=== PATIENT | female | born 1980 | race Caucasian/White ===

== ENCOUNTER 2018-08-17 14:29 | Outpatient (CLI) | payer BC, SELFPAY ==
--- NOTE | 2018-08-17 13:41 | DI.RAD_ITS ---
SYMPTOMS/DIAGNOSIS: TWISTED ANKLE, S99.919A RIGHT ANKLE: Three views. No acute fracture or dislocation is seen. There is soft tissue swelling about the ankle particularly laterally. No radiopaque foreign bodies are seen in the soft tissues. IMPRESSION: Soft tissue swelling about the ankle. No acute fracture or dislocation.
== END 2018-08-17 14:49 ==
PROVIDERS: Visit Provider Nurse Practitioner Family
DX: M25.571 Pain in right ankle and joints of right foot (principal); S93.401A Sprain of unspecified ligament of right ankle, initial encounter; M79.89 Other specified soft tissue disorders
CPT/HCPCS: 73610

== ENCOUNTER 2018-08-24 12:37 | Outpatient (REF) | payer BC, SELFPAY ==
--- NOTE | 2018-08-24 11:20 | PAPFT_PTH ---
PATIENT: Jo Siegel LOC: [facility] U#:[id number] AGE/SX: 38/F ROOM: RE08/24/[address]: Evangelina Lam : 1980 BED: DIS: 08/24/2018 SPEC #: [id number] RECD: 08/24/18 18:00 STATUS: JAMIACamilo REPriscila #: [id number] OLIIVA: 08/24/18 11:[address]: Evangelina Lam DEPT: [facility] Cytology RECD BY: Fiordaliza Ceron ENTERED: 08/24/18 18:00 SP TYPE: PAPFT OTHR DR: Yuliana Christensen APRN Tissues: 1 - CX/ENDOCX FOR PAP SMEARS Procedures: PAP THIN PREP/UVM Screening HPV DNA PROBE Comments:
== END 2018-08-24 12:57 ==
LOC: LBN 12:37
PROVIDERS: Visit Provider Obstetrics & Gynecology Gynecology
DX: Z12.4 Encounter for screening for malignant neoplasm of cervix (principal); Z11.51 Encounter for screening for human papillomavirus (HPV)
CPT/HCPCS: 88142; 87624

== ENCOUNTER 2019-11-04 01:34 | Outpatient (CLI) | payer BC, SELFPAY ==
--- NOTE | 2019-11-04 10:51 | DI.MAMMO_ITS ---
EXAM: MAMMO SCREENING CLINICAL HISTORY: screening, Z12.39. baseline TECHNIQUE: Full field digital CC and MLO mammographic images were obtained with 3D tomosynthesis and utilizing computer aided detection (CAD). COMPARISON: This is a baseline examination. FINDINGS: Breast Density - Category B - Scattered areas of fibroglandular density Masses/Architectural Distortion: None seen. Microcalcifications: No suspicious pleomorphic-type calcifications are seen. Skin Thickening/Nipple Retraction: None. Axilla: Unremarkable. IMPRESSION: 1. BI-RADS category 1, negative. No significant interval change with no specific features of maligna ncy noted. 2. Unless there is more urgent need, screening mammography is recommended, as per [employer] guidelines. A negative radiographic report should not delay biopsy if a dominant or clinically suspicious mass is present. Up to ten percent of cancers are not identified on mammography. A negative report may reinforce clinical impression. Adenosis and dense breasts may obscure an underlying neoplasm. False positive reports average 6 to 10%. Patient will receive a letter notifying them of these results.
== END 2019-11-04 01:54 ==
PROVIDERS: PCP Nurse Practitioner; Visit Provider Nurse Practitioner
DX: Z12.31 Encounter for screening mammogram for malignant neoplasm of breast (principal)
CPT/HCPCS: 77063; 77067

== ENCOUNTER 2021-02-05 01:58 | Outpatient (CLI) | payer BC, SELFPAY ==
[2021-02-05 08:59] LABS: TSH (W/Ref FT4) 0.79 uIU/mL (0.36-3.74)
[2021-02-05 17:01] LABS: Estradiol 82 pg/mL (See Note)
[2021-02-05 18:32] LABS: FSH 7.8 mIU/mL (See Note)
== END 2021-02-05 01:59 | disposition home or self-care (01) ==
LOC: LBO 01:58
PROVIDERS: PCP Nurse Practitioner; Visit Provider Nurse Practitioner Women's Health
DX: R53.83 Other fatigue (principal); R23.2 Flushing
CPT/HCPCS: 36415; 82670; 83001; 84443

== ENCOUNTER 2021-02-10 17:44 | Outpatient (REF) | payer BC, SELFPAY ==
[2021-02-16 14:55] LABS: Helicobacter pylori Ag, Feces Negative (Negative)
== END 2021-02-10 17:45 | disposition home or self-care (01) ==
LOC: LBN 17:44
PROVIDERS: PCP Nurse Practitioner; Visit Provider Nurse Practitioner
DX: R10.13 Epigastric pain (principal)
CPT/HCPCS: 87338

== ENCOUNTER 2021-07-26 02:44 | Outpatient (CLI) | payer BC, SELFPAY ==
[2021-07-26 11:33] LABS: Source Nasal/Nares
[2021-07-26 16:28] LABS: COVID-19 PCR Negative (Negative)
== END 2021-07-26 02:45 | disposition home or self-care (01) ==
LOC: LBO 02:44
PROVIDERS: PCP Nurse Practitioner; Visit Provider Surgery
DX: Z20.822 Contact with and (suspected) exposure to COVID-19 (principal); Z01.818 Encounter for other preprocedural examination
CPT/HCPCS: 87635

== ENCOUNTER 2021-07-27 06:09 | Day surgery (SDC) | payer BC, SELFPAY ==
--- NOTE | 2021-07-26 22:22 | PDOC.DSDIS_ITS ---
Discharge Plan Disposition Patient Disposition: HOME Condition: Good Discharge Details Reason For Visit: stomach and colon scope Attending Provider: Sari Jimenez Primary Care Provider: Judie Uribe Home Meds and New Rx's Prescriptions: New dicyclomine 10 mg capsule 10 mg PO TID PRN (Reason: abdominal distention/cramping ) Qty: 60 RF: 6 Continued famotidine 20 mg tablet 20 mg PO BID Qty: 60 RF: 0 albuterol sulfate 90 mcg/actuation HFA aerosol inhaler 2 puff IH 6XD PRN (Reason: shortness of breath or wheezing) Qty: 18 RF: 0 fluoxetine 40 mg capsule 40 mg PO DAILY Qty: 90 RF: 3 Discontinued bisacodyl [Dulcolax (bisacodyl)] 5 mg tablet,delayed release (DR/EC) 5 mg PO ONCE Qty: 4 RF: 0 polyethylene glycol 3350 17 gram/dose powder 238 g PO ONCE Qty: 238 RF: 0 Discharge Instructions Additional Instructions: DSU Colonoscopy Post- Op Instructions Instructions for Everyone who is given Anesthesia: For your safety, please do the following for the next twenty-four (24) hours: *Do Not operate a motor vehicle (car, truck, motorcycle, etc.) *Do Not drink alcoholic beverages or use any recreational drugs for the first 24 hours or while taking pain medications. The medications in your body may have a reaction that can be dangerous. *Do Not make any important decisions or sign any important papers. Findings:bile reflux gastritis esophageal ulcer protonix/carafate bentyl Follow up: 1. No lifting over 20 pounds or strenuous activity for the first 24 hours after your procedure. After 24 hours there are no restrictions on your activity but you may feel fatigued for a few days. 2. After you arrive home you may have a light meal and return to your normal diet as you can tolerate it without feeling sick to your stomach. 3. You may have a bloated, gaseous feeling in your belly (abdomen) after a colonoscopy. Passing gas and belching will help. Walking or lying down on your left side with your knees flexed may relieve the discomfort. Call the office at [phone] (Office) or [phone] (Hospital) right away if you notice any of the following: a.Vomiting of blood or ?coffee ground stools?. b.Rectal bleeding 1Tbsp, blood clots or continuous bleeding. c.Severe belly (abdominal) pain. d.A hard distended belly (abdomen) and an inability to pass gas. 4. Please don?t expect to have a normal BM (bowel movement) for 2-3 days after your procedure. 5. If there are questions regarding the findings of your procedure, please co ntact your doctor 6. If you are unable to contact your doctor with a problem, contact the hospital at [phone]. 7. Continue all your regular medications unless directed otherwise. I understand the above instructions and have no questions. Signature of Patient or Adult Escort Name of Responsible Adult Escort Signature of Nurse Date/Time Activity:: see above Diet:: see above Discharge Orders Discharge Orders: Discharge Order (Routine); Ordered 07/26/21 Ordered By: Sari Jimenez DS: Diagnosis Discharge Diagnosis (1) IBS (irritable bowel syndrome): Status: Chronic (2) GERD with esophagitis: Status: Acute (3) Esophageal ulcer without bleeding: Status: Acute (4) Bile reflux gastritis: Status: Acute (5) Duodenitis: Status: Acute
--- NOTE | 2021-07-26 22:22 | W.COLOREPORT ---
Colonoscopy Report Date of procedure: 07/27/21 Pre-op diagnosis general: abdominal pain Post-op diagnosis procedure note: other (IBS) Surgeon: Sari Jimenez Anesthesia Type: General LMA/ETT Estimated blood loss (mL): 1 Pathology: other Complications: None Disposition: same day Prep: Miralax/Dulcolax Retraction Time: 7 Procedure Description: After informed consent was obtained the patient was taken to the procedure room and placed in a left decubitous position. Monitors were applied and a time out was done. The patients name, date of , procedure, allergies to medications and metal in their body was reviewed. The patient was then sedated. Once sedated and comfortable a rectal exam was done. External exam was normal. Internal exam revealed a normal sphincter tone and no palpable masses. The scope was then introduced and retrofelexed. no internal hemorrhoids were identified. The scope was then advanced to the cecum w/out difficulty. The TI and appendiceal orifice were identified. The prep was good. The scope was then slowly retracted over 7 minutes back into the rectum. There are no polyps, AVMs, or diverticular present. The mucosa and accompanying vasculature appear healthy. Biopsies were taken of the cecum, 80 cm, 50 cm, 30 cm and rectum. All specimens are retrieved and no bleeding is noted. The scope was removed and the patient was woken up and taken back to Same day surgery in stable condition. The patient tolerated the procedure well and there were no immediate complications. Follow up: The patient should follow up in 10 years unless they develop changes in bowel habits or other new gastrointestinal complaints.
[2021-07-27 06:15] VITALS: BP 105/71; PULSE 90; RESP 18; TEMP 36.4; O2SAT 100
[2021-07-27] MEDS: Lactated Ringers 1,000 ML 80 ML IV (06:40)
--- NOTE | 2021-07-27 07:02 | ANES.PREOP_ITS ---
General Info Date of Service Date Performed: 07/27/21 Height: 5 ft 4 in Weight: 81.7 kg Body Mass Index (BMI): 30.9 Surgical Procedure: Operation Date: 07/27/21 07:35 Proposed Procedures Side Surgeon p Colonoscopy/Gastroscopy Sari Jimenez, Meds Allergies and Home Medications Allergies Allergy/AdvReac Type Severity Reaction Status Date / Time bacitracin Allergy Intermediate Rash Unverified 07/27/21 06:25 [From Neosporin ([id number])] neomycin sulfate Allergy Intermediate Rash Unverified 07/27/21 06:25 [From Neosporin ([id number])] polymyxin B Allergy Intermediate Rash Unverified 07/27/21 06:25 [From Neosporin ([id number])] Home Medication Medication Instructions Recorded albuterol sulfate 90 mcg/actuation 2 puff IH 6XD PRN #18 gm 01/07/20 aerosol inhaler fluoxetine 40 mg capsule 40 mg PO DAILY #90 cap 01/27/21 bisacodyl 5 mg tablet,delayed 5 mg PO ONCE #4 tab 06/18/21 release famotidine 20 mg tablet 20 mg PO BID #60 tab 06/18/21 polyethylene glycol 3350 17 238 g PO ONCE #238 g 06/18/21 gram/dose oral powder Current Visit Medications: Current Medications Generic Name Dose Route Start Last Admin Trade Name Freq PRN Reason Stop Dose Admin Hyoscyamine Sulfate 0.125 mg 07/26/21 21:13 Hyoscyamine 0.125 Mg Sl/Oral/Chew SL DIRECTED PRN Ringer's Solution 1,000 mls @ 80 mls/hr 07/27/21 06:00 07/27/21 06:40 IV 08/25/21 23:59 80 mls/hr INFUSION TY Administration IV Miscellaneous Supplies 1 each 07/27/21 06:00 Iv Access IV 08/25/21 23:59 DIRECTED TY Ondansetron HCl 4 mg 07/26/21 21:13 Ondansetron 4 Mg/2 Ml Vial IVP Q4H PRN PRN Nausea / Vomiting Sodium Chloride 0 ml 07/27/21 06:00 Normal Saline Flush 10 Ml Syr IV 08/25/21 23:59 PRN PRN Sodium Chloride 0 ml 07/27/21 06:00 Normal Saline 10 Ml Vial IJ 08/25/21 23:59 DIRECTED PRN Sterile Water 0 ml 07/27/21 06:00 Water,Injection,Sterile 10 Ml Vial IJ 08/25/21 23:59 DIRECTED PRN PFSH Active Problems Active Problems: Problem Status Onset Code Epigastric pain R10.13 IBS (irritable bowel syndrome) K58.9 Depression F32.9 Asthma J45.909 Dyspareunia Anxiety 11/21/17 F41.9 Medical History Medical History Abnormal Pap smear of cervix 2016 MUSA-2. S/P LEEP. Normal Paps since Asthma MUSA II (cervical intraepithelial neoplasia II) (08/16/16) Dyspareunia Surgical History Surgical History History of loop electrosurgical excision procedure (LEEP) of cervix 2016 MUSA-2. Normal Paps since PROCEDURES Endometrial Biopsy, 03/22/12 [facility]- MUSA II HGSIL ON BIOPSY CERVICAL LES CAUTERIZAT, 06/05/12 [facility] (LEEP) HIGH GRADE SQUAMOUS INTRAEPITHELIAL LESION (CINN II) S/P cholecystectomy Status post LEEP (loop electrosurgical excision procedure) of cervix High grade squamous; intraepithelial lesion (MUSA II) Pap-Low grade squamous intraepithelial lesion (LGSIL) 12/2012-[facility] S/P LEEP; high grade squamous; intraepithelial lesion (MUSA II)-paps normal since LEEP Tobacco Smoking/Tobacco Use Status: Former Tobacco Use Alcohol Alcohol Intake: current Alcohol intake frequency: a few times a month Substance Use Substance use: Never Substance use type: does not use Prental History History 3 Para Hx # Term Pregnancies 3 Multiple births Hx # Pregnancies Ectopic pregnancies AB induced Hx Number of Living Children 3 AB spontaneous Vital Signs and Lab Results Vital Signs Most Recent Vital Signs in EMR: Most Recent Vital Signs Temp Pulse Resp BP Pulse Ox 36.4 C L 90 18 105/71 100 07/27/21 06:15 07/27/21 06:15 07/27/21 06:15 07/27/21 06:15 07/27/21 06:15 Point of Care Results Point of Care Results: POC- Test(urine) Negative 07/27/21 06:34 Lab Results Blood Type / Crossmatch: No Data to Display Complete Blood Count: No Data to Display Complete Metabolic Panel: No Data to Display Liver Function Panel: No Data to Display Coagulation Panel: No Data to Display Cardiac Panel: No Data to Display Arterial Blood Gas: No Data to Display Venous Blood Gas: No Data to Display Pancreas Panel: No Data to Display Thyroid Panel: No Data to Display Infectious Disease: Coronavirus (COVID-19)(PCR) Negative (Negative) 07/26/21 09:50 07/26/21 Coronavirus 2019 Source Nasal/Nares 07/26/21 09:50 07/26/21 Blood Cultures: No Data to Display Toxicology Panel: No Data to Display Panel: No Data to Display Anesthesia Assessment and Plan Anesthesia History Personal History: No History of Anesthesia Complications Family History: No Family History of Anesthesia Complications Exercise Tolerance Exercise Tolerance: Metabolic Equivalents>4 Pertinent Negatives Pertinent Negatives: No Symptoms of GERD Cardiac & Pulmonary Exam Cardiac Exam: Normal S1/S2 Heart Sounds Pulmonary Exam: Clear Bilateral Breath Sounds Airway Exam Known Difficult Airway: No Mallampati Class: 2 Mouth Opening: Normal (> 3cm) Thyromental Distance: Greater than 3 cm Neck Range of Motion: Full ROM Neck Circumference: Normal Teeth Condition: Normal Dentition ASA Classification ASA Score: ASA 2 Emergency Case?: No NPO Status NPO Status: NPO Clears >2 hours, Solids >8 hours Status Status: Negative HCG Anesthesia Plan Resuscitation Status: Full Code Anesthesia Technique: General Anesthesia Airway Planned: Natural Airway Monitors Used: Standard Monitors
[2021-07-27 07:20] VITALS: BMI 30.9
--- NOTE | 2021-07-27 08:03 | HPE_ITS ---
Date of service: 07/27/21 Time of Service: 08:03 Assessment and Plan Assessment and plan (1) Epigastric pain: Status: Acute (2) IBS (irritable bowel syndrome): Status: Chronic Assessment and plan: Informed consent is obtained for the procedural (explained in simple layman's terms that the pt and/or family could understand) explaining risks vs benefits and alternatives to the procedure and consequences if we do not do the procedure and need/rational for the procedure. Risks include but are not limited to: bleeding, infection, perforation of esophagus, stomach, colon, small intestines, bronchus or trachea, or PTX. This would necessitate emergency surgery to repair the damage w/ possible ostomy; and other associated complications w/ the required surgery. Also complications of anesthesia including aspiration, AZ/CVA/. All questions answered and stable for procedure today. EGD and colonoscopy. Both with biopsies. Qualifiers: Irritable bowel syndrome type: with both diarrhea and constipation Qualified Code(s): K58.2 - Mixed irritable bowel syndrome History of Present Illness Narrative: 1 y/o female with a history of depression, asthma and anxiety pr esents with complaints of persistent epigastric pain along with severe and constant heartburn symptoms. She reports she had hyperemesis gravadium during all three of her pregnancies and now her heart burn symptoms have persisted. She describes her symptoms as burning in her throat, midsternal pain that is stabbing in nature. She trialled omeprazole with minimal improvement in her symptoms. This was then discontinued to allow for H. Pylori stool testing, which was negative. She did not return to using any medications for her symptoms. She states she is currently using OTC Tums and Rolaids PRN. Also of note the patient reports chronic GI issues, that consist of cramping, bloating and fluctuation between diarrhea and constipation. These symptoms are relieved with defecation. She reports following the Low FODMAP diet without any improvement and she has also supplemented her diet with metamucil. She reports that she stopped taking the metamucil because this caused stomach aches. The patient was very emotional during todays discussions, expressing frustration with her circumstances of not being able to finds answers or ways to improve her symptoms. She denies any family history of colon cancer or inflammatory bowel disease. Denies chest pain, palpitations, dyspnea or dyspnea with exertion. Denies personal or family history of adverse reactions to anesthesia. Denies any hist ory of AZ, stroke, seizures, bleeding or clotting disorders. Denies having any implanted metal. Denies any history of chemotherapy or radiation. Lengthy discussion about the potential options of trying H2 eva such as famotidine to help reduce her constant symptoms of heart burn. The patient was agreeable to this, however wishes to proceed with having a endoscopy for further evaluation of her symptoms. Negative H. Pylori stool test is reassuring. Given that she also has chronic bowel habit changes, abdominal pain and bloating discussed the option of also performing a Colonoscopy at the same time, given the chronicity of her symptoms. -Discussed Upper endoscopy procedure and the need to be NPO after midnight the night prior. Discussed possible complications of the procedure to include bleeding, pain, perforation, missed small lesion/polyp/ulcers, sore throat, aspiration and adverse reaction to the medications or sedation. Questions were answered to patient?s satisfaction. No guarantees were implied or given. She has no family history of colon cancer. She has had chronic GI issues including diarrhea, constipation, abdominal bloating and cramping. -Discussed colonoscopy bowel prep as well as the procedure. Discussed possible complications of the procedure to include bleeding, pain, perforation, missed small lesion/polyp, sore throat, aspiration and adverse reaction to the m edications. Questions were answered to patient?s satisfaction. No guarantees were implied or given. Informed consent is obtained for the procedural (explained in simple layman's terms that the pt and/or family could understand) explaining risks vs benefits and alternatives to the procedure and consequences if we do not do the procedure and need/rational for the procedure. Risks include but are not limited to: bleeding, infection, perforation of esophagus, stomach, colon, small intestines, bronchus or trachea, or PTX. This would necessitate emergency surgery to repair the damage w/ possible ostomy; and other associated complications w/ the required surgery. Also complications of anesthesia including aspiration, AZ/CVA/. Patient completed a bowel prep. Fluids coming is just clear yellow. She has no abdominal pain or cramping. No nausea and vomiting. She is having no chest pain or shortness of breath . She has no productive cough or fevers. She has no changes in her medical status. She has no changes in her medications. She is not been in the emergency department. All questions were answered to her satisfaction and she is stable for proposed procedure today. Review of Systems All systems reviewed & are unremarkable except as noted in HPI and below PFSH Medical History Abnormal Pap smear of cervix 2016 MUSA-2. S/P LEEP. Normal Paps since Asthma MUSA II (cervical intraepithelial neoplasia II) (08/16/16) Dyspareunia Surgical History History of loop electrosurgical excision procedure (LEEP) of cervix 2016 MUSA-2. Normal Paps since PROCEDURES Endometrial Biopsy, 03/22/12 [facility]- MUSA II HGSIL ON BIOPSY CERVICAL LES CAUTERIZAT, 06/05/12 [facility] (LEEP) HIGH GRADE SQUAMOUS INTRAEPITHELIAL LESION (CINN II) S/P cholecystectomy Status post LEEP (loop electrosurgical excision procedure) of cervix High grade squamous; intraepithelial lesion (MUSA II) Pap-Low grade squamous intraepithelial lesion (LGSIL) 12/2012-[facility] S/P LEEP; high grade squamous; intraepithelial lesion (MUSA II)-paps normal since LEEP Family History Mother No problems noted. Father No problems noted. Sister No problems noted. Grandfather Neoplasm BLADDER Grandfather No problems noted. Grandmother No problems noted. Grandmother No problems noted. Son No problems noted. Son No problems noted. Daughter No problems noted. 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 Pets and animals: Yes Pets and animals: dog(s) What type of physical activity do you participate in: none Special moreno needs: No Seatbelt use: always Do you feel safe at home: Yes Do you feel safe in your relationship?: Yes History History 3 Para Hx # Term Pregnancies 3 Multiple births Hx # Pregnancies Ectopic pregnancies AB induced Hx Number of Living Children 3 AB spontaneous Meds Allergies and Home Medications Allergies Allergy/AdvReac Type Severity Reaction Status Date / Time bacitracin Allergy Intermediate Rash Unverified 07/27/21 06:25 [From Neosporin ([id number])] neomycin sulfate Allergy Intermediate Rash Unverified 07/27/21 06:25 [From Neosporin ([id number])] polymyxin B Allergy Intermediate Rash Unverified 07/27/21 06:25 [From Neosporin ([id number])] Home Medications Medication Instructions Recorded Confirmed Type albuterol sulfate 90 mcg/actuation 2 puff IH 6XD PRN #18 gm 01/07/20 07/23/21 Rx aerosol inhaler fluoxetine 40 mg capsule 40 mg PO DAILY #90 cap 01/27/21 07/27/21 Rx bisacodyl 5 mg tablet,delayed 5 mg PO ONCE #4 tab 06/18/21 07/27/21 Rx release famotidine 20 mg tablet 20 mg PO BID #60 tab 06/18/21 07/27/21 Rx polyethylene glycol 3350 17 238 g PO ONCE #238 g 06/18/21 07/27/21 Rx gram/dose oral powder Exam Const General: cooperative, healthy appearing, comfortable, no acute distress, well developed and well groomed Nutritional Appearance: average body habitus and well nourished Orientation: alert, awake and oriented x3 HENMT Head: normal to inspection, normocephalic and atraumatic Ears: hearing grossly normal bilaterally and external ears normal General nose exam: external nose normal Face and sinus: normal facial exam and sinuses nontender Mouth: oral mucosae normal, lip normal, tongue normal and moist mucous membranes Teeth and gingiva: dentition normal Eyes General: appearance normal, both eyes and all related structures Conjunctivae: conjunctivae normal Sclera: sclerae normal Pupils: PERRL Neck Neck: normal visual inspection and full ROM Chest Chest: normal inspection of the chest Resp Effort & Inspection: normal respiratory effort, able to speak in complete sentences, no cough, no nasal flaring, not tachypneic and no use of accessory muscles Auscultation: clear to auscultation bilaterally, no rales, no rhonchi and no wheezes Cardio Jugular venous pressure: no JVD Rate: regular rate Rhythm: regular rhythm GI Inspection: normal to inspection, no edema and non-distended Palpation: soft, no masses, nontender and No ascites Auscultation: normal bowel sounds Skin General skin exam: no rashes or lesions noted Trauma: no lacerations or abrasions Neuro General: patient alert, patient oriented x3, oriented, gait normal, moves all extremities, no focal motor deficits and CN's II-XI intact bilaterally Cognition: normal cognition Speech: speech normal Gait: normal gait Motor: muscle tone normal throughout Extrem General: normal to inspection, full ROM and no clubbing, cyanosis or edema Psych Appearance: grossly normal and well kempt Mental Status: mental status grossly normal Speech and Movement: speech and movement normal Affect: normal affect Results Last Vital Signs Temp 36.4 C L 07/27/21 06:15 Pulse 90 07/27/21 06:15 Resp 18 07/27/21 06:15 BP 105/71 07/27/21 06:15 Pulse Ox 100 07/27/21 06:15
--- NOTE | 2021-07-27 08:26 | BOWEL_PTH ---
PATIENT: Jo Siegel LOC: [facility] U#:[id number] AGE/SX: 41/F ROOM: RE07/27/[address]: Sari Jimenez : 1980 BED: DIS: 07/27/2021 SPEC #: [id number] RECD: 07/27/21 12:55 STATUS: [facility] RE #: [id number] OLIVIA: 07/27/21 08:[address]: Sari Jimenez DEPT: Surgical Specimen RECD BY: Fiordaliza Ceron ENTERED: 07/27/21 12:59 SP TYPE: Bowel OTHR DR: Judie Uribe, PhD LARRY [employer] OPERATOR Tissues: 1 - BIOPSY BOWEL 2 - BIOPSY BOWEL 3 - STOMACH BIOPSY 4 - STOMACH BIOPSY 5 - ESOPHAGUS BIOPSY 6 - ESOPHAGUS BIOPSY 7 - BIOPSY BOWEL 8 - BIOPSY BOWEL 9 - BIOPSY BOWEL 10 - BIOPSY BOWEL 11 - BIOPSY BOWEL Procedures: GROSS AND MICRO LEVEL 4 Comments: [id number]
[2021-07-27 08:55] VITALS: BP 94/61; PULSE 74; RESP 16; TEMP 36.8; O2SAT 96
[2021-07-27 09:25] VITALS: BP 96/61; PULSE 59; RESP 16; TEMP 36.8; O2SAT 98
--- NOTE | 2021-07-27 09:46 | W.ANESPOSTOP ---
Postoperative Evaluation Date, Time and Location Date Performed: 07/27/21 Time Performed: 09:15 Patient Location: Day Surgery Unit Vital Signs Most Recent Imported Vital Signs: Most Recent Vital Signs Temp Pulse Resp BP Pulse Ox 36.8 C 59 L 16 96/61 L 98 07/27/21 09:25 07/27/21 09:25 07/27/21 09:25 07/27/21 09:25 07/27/21 09:25 Pain Score Most Recent Pain Score: Most Recent Pain Score Pain Level 0 07/27/21 09:25 Assessment Mental Status: Awake (Alert & Oriented to Patient Baseline) Airway and Respiratory Function: Patent airway with normal (patient baseline) respiratory exam Cardiovascular Function: Hemodynamically Stable Hydration Status: Adequately Hydrated Nausea & Vomiting: No Nausea or Vomiting Pain: Pt. Denies Any Pain Peripheral Nerve Block: Patient did not receive a nerve block
--- NOTE | 2021-07-27 13:15 | W.PM.ENDDOP ---
Date of service: 07/27/21 Time of Service: 13:15 Endoscopy Report DATE OF PROCEDURE: 07/27/21 PRE-OP DIAGNOSIS: gerd POST-OP DIAGNOSIS: other (Duodenitis /bile reflux gastritis/esophagitis with esophageal ulcer) SURGEON: Sari Jimenez ANESTHESIA TYPE: General LMA/ETT ESTIMATED BLOOD LOSS: 1 PATHOLOGY: other COMPLICATIONS: None DISPOSITION: same day PROCEDURE DESCRIPTION: After informed consent was obtained the patient was take to the procedure room and placed in a supine position. Monitors were applied and a time out was done. The patients name, date of , procedure type, allergies to medications and metal in their body was reviewed. A bite block was placed and the patient was sedated. Once sedated and comfortable the gastroscope was advanced through the oropharynx which was grossly normal into the esophagus. The proximal and mid-esophagus were normal. In the distal esophagus there was moderate esophagitis and a small esophageal ulcer. It had a white eschar and appears to be old and healing nicely. There is no active or old bleeding. The scope was advanced into the stomach and through the pylorus into the 3rd portion of the duodenum. The duodenum was noted to be mild duodenitis. Biopsies were done, all specimens are retrieved and no bleeding is noted the scope was retracted back into the stomach and biopsies were done to rule out H. pylori. There is active bile reflux noted. She has mild gastritis rating up from the antrum in a striped fashion. The scope was retroflexed. The cardia and fundus were noted to be normal. There no a hiatal hernia noted. The scope was retracted back into the esophagus and biopsies were done of the GE junction to rule out Ochoa's. The Z line was irregular. The scope was removed and we continued on 2 the colonoscopic portion of the procedure
== END 2021-07-27 10:21 | disposition home or self-care (01) ==
PROVIDERS: PCP Nurse Practitioner; Visit Provider Surgery
PROC: (CPT 45380; principal; 2021-07-27 07:30)
DX: K29.80 Duodenitis without bleeding (principal); K29.70 Gastritis, unspecified, without bleeding; K22.10 Ulcer of esophagus without bleeding; K58.2 Mixed irritable bowel syndrome; R10.13 Epigastric pain; K21.00 Gastro-esophageal reflux disease with esophagitis, without bleeding
CPT/HCPCS: 45380; 43239; 81025; 88305; J2405

== ENCOUNTER 2022-05-08 08:51 | Emergency (ER) | payer BC, SELFPAY ==
[2022-05-08 08:54] VITALS: BP 119/65; PULSE 90; RESP 18; TEMP 37.2; O2SAT 99
--- NOTE | 2022-05-08 09:11 | ED.GENADUL_ITS ---
Discharge Plan Disposition Patient Disposition: HOME Condition: Stable Discharge Details Clinical Impression: Cough, Pharyngitis Primary Care Provider: Judie Uribe ED Provider: Renaldo Dial Home Meds and New Rx's Prescriptions: New prednisone 20 mg tablet 60 mg PO DAILY 5 Days Qty: 15 0RF Continued cetirizine [Zyrtec] 10 mg tablet 10 mg PO DAILY PRN albuterol sulfate 90 mcg/actuation HFA aerosol inhaler 2 puff IH 6XD PRN (Reason: shortness of breath or wheezing) Qty: 18 0RF dicyclomine 10 mg capsule 10 mg PO TID PRN (Reason: abdominal distention/cramping ) Qty: 60 6RF pantoprazole [Protonix] 40 mg tablet,delayed release (DR/EC) 40 mg PO DAILY Qty: 90 4RF sucralfate [Carafate] 1 gram tablet 1 g PO HS Qty: 60 12RF Rx Instructions: may take up to 4 a day as needed for heartburn symptoms Discharge Instructions Instructions: Pharyngitis (ED), Acute Cough (ED) Additional Instructions: Rapid strep is negative. Chest x-ray is clear. Both your strep culture and COVID are pending. Prednisone as directed. Arrp-klx-qmrktmj medications for symptomatic control such as Tylenol, Motrin, antihistamine, decongestant, Chloraseptic spray, etc. Please watch for new or worsening symptoms and return to the ER for any concerns. Lastly, please contact your primary care provider in the next 3-5 days if symptoms not improving for outpatient reevaluation. Medical Decision Making 41-year-old female with a history of asthma, non-smoker, fully vaccinated against COVID, presents for URI-like symptoms for the past 3 days. Reports that mother and child have similar symptoms. Clinically she appears well, nontoxic, afebrile, pulse in the 90s, O2 sat 99% on room air, lungs clear to auscultation. Will obtain a send out COVID swab as well as a rapid strep and a chest x-ray. Clinically this appears to be more of a viral bronchitis and I do believe that initiating a burst dose of steroids would be reasonable given her requiring to use her inhaler and tell me that she feels wheezy at times Rapid strep negative. Chest x-ray unremarkable. Strep culture and COVID both pending. Standard discharge and return precautions were provided. Patient understands, is agreeable to this plan, and has no additional questions or concerns upon discharge. This documentation was generated using Dinetouchation system, please disregard any oddities of phrase or misspellings. Medical Records Medical records reviewed: Yes I reviewed the patient's medical records. Imaging Data Radiologic Study: Attestation: I personally reviewed and interpreted this imaging study as follows: Imaging: X-Ray Radiologist's impression: PROCEDURE INFORMATION: Exam: XR Chest Exam date and time: 05/08/2022 9:29 AM Age: 41 years old Clinical indication: Cough TECHNIQUE: Imaging protocol: Radiologic exam of the chest. Views: 1 view. COMPARISON: No relevant prior studies available. FINDINGS: Lungs: Unremarkable. No consolidation. Pleural spaces: Unremarkable. No pleural effusion. No pneumothorax. Heart/Mediastinum: Unremarkable. No cardiomegaly. Bones/joints: Unremarkable. IMPRESSION: No acute findings. Lab Data Lab results reviewed: Yes I reviewed the patient's lab results. Labs: 05/08/22 09:10 Tonsil - Not Specified Group A Streptococcus Culture - Pending HPI General Mode of arrival: ambulatory . Date/Time Provider Initiated Documentation: 05/08/22 09:02 . Limitations to Documentation: no limitations . Information obtained by: patient . HPI Narrative: This is a 41-year-old female, past medical history of asthma, presenting to the ER for evaluation of 6-day history of runny nose, sore throat, cough. Patient states that she is vaccinated for COVID. States that both her mother and child had similar symptoms. She denies headache, fever, ear pain, abdominal pain, nausea, vomiting, skin rash. She has taken ofja-snh-ommavyg medication with some relief. Related Data Home Medications Medication Instructions Recorded Confirmed albuterol sulfate 90 mcg/actuation 2 puff inhalation 6XD PRN 01/07/20 05/08/22 aerosol inhaler shortness of breath or wheezing #18 grams dicyclomine 10 mg capsule 10 mg PO TID PRN abdominal 07/27/21 05/08/22 distention/cramping #60 caps pantoprazole 40 mg tablet,delayed 40 mg PO DAILY #90 tabs 07/27/21 05/08/22 release (Protonix) sucralfate 1 gram tablet (Carafate) 1 g PO HS #60 tabs 07/27/21 05/08/22 cetirizine 10 mg tablet (Zyrtec) 10 mg PO DAILY PRN 04/26/22 05/08/22 prednisone 20 mg tablet 60 mg PO DAILY 5 days #15 tabs 05/08/22 Previous Rx's Medication Instructions Recorded albuterol sulfate 90 mcg/actuation 2 puff inhalation 6XD PRN 01/07/20 aerosol inhaler shortness of breath or wheezing #18 grams dicyclomine 10 mg capsule 10 mg PO TID PRN abdominal 07/27/21 distention/cramping #60 caps pantoprazole 40 mg tablet,delayed 40 mg PO DAILY #90 tabs 07/27/21 release (Protonix) sucralfate 1 gram tablet (Carafate) 1 g PO HS #60 tabs 07/27/21 prednisone 20 mg tablet 60 mg PO DAILY 5 days #15 tabs 05/08/22 Allergies Allergy/AdvReac Type Severity Reaction Status Date / Time bacitracin Allergy Intermediate Rash Unverified 05/08/22 09:12 [From Neosporin ([id number])] neomycin sulfate Allergy Intermediate Rash Unverified 05/08/22 09:12 [From Neosporin ([id number])] polymyxin B Allergy Intermediate Rash Unverified 05/08/22 09:12 [From Neosporin ([id number])] General Stated Complaint: GenMedical MULUGETA: 3 Review of Systems Constitutional Constitutional: Denies fever(s) ENT Ears, Nose, Mouth, and Throat: Reports nasal discharge and Reports sore throat Cardiovascular Cardiovascular: Denies chest pain and Denies dyspnea Respiratory Respiratory: Reports cough and Denies dyspnea Gastrointestinal Gastrointestinal: Denies abdominal pain, Denies nausea and Denies vomiting Integumentary/Breasts Skin/Breast: Denies rash PFSH All Active Problems (Updated 05/08/22 @ 10:01 by LB Gaxiola) Cough (Acute) Pharyngitis (Acute) Duodenitis (Acute) Bile reflux gastritis (Acute) Esophageal ulcer without bleeding (Acute) GERD with esophagitis (Acute) Epigastric pain (Acute) IBS (irritable bowel syndrome) (Chronic) Depression (Chronic) Asthma (Chronic) Dyspareunia (Chronic) Anxiety (Acute 11/21/17) Medical History Abnormal Pap smear of cervix 2016 MUSA-2. S/P LEEP. Normal Paps since MUSA II (cervical intraepithelial neoplasia II) (08/16/16) Surgical History History of colonoscopy (~07/27/21) History of esophagogastroduodenoscopy (EGD) (~07/27/21) History of loop electrosurgical excision procedure (LEEP) of cervix 2016 MUSA-2. Normal Paps since PROCEDURES Endometrial Biopsy, 03/22/12 [facility]- MUSA II HGSIL ON BIOPSY CERVICAL LES CAUTERIZAT, 06/05/12 [facility] (LEEP) HIGH GRADE SQUAMOUS INTRAEPITHELIAL LESION (CINN II) S/P cholecystectomy Status post LEEP (loop electrosurgical excision procedure) of cervix High grade squamous; intraepithelial lesion (MUSA II) Pap-Low grade squamous intraepithelial lesion (LGSIL) 12/2012-[facility] S/P LEEP; high grade squamous; intraepithelial lesion (MUSA II)-paps normal since LEEP Family History Mother No problems noted. Father No problems noted. Sister No problems noted. Grandfather Neoplasm BLADDER Grandfather No problems noted. Grandmother No problems noted. Grandmother No problems noted. Son No problems noted. Son No problems noted. Daughter No problems noted. 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 Pets and animals: Yes Pets and animals: dog(s) What type of physical activity do you participate in: none Special moreno needs: No Seatbelt use: always Do you feel safe at home: Yes Do you feel safe in your relationship?: Yes Female Reproductive History Menstrual control method: other (partner with vasectomy) History History 3 Para Hx # Term Pregnancies 3 Multiple births Hx # Pregnancies Ectopic pregnancies AB induced Hx Number of Living Children 3 AB spontaneous Exam Const General: cooperative, healthy appearing, comfortable and no acute distress Orientation: alert and awake HENMT Head: normal to inspection, normocephalic and atraumatic Ears: external ears normal, TM's normal bilaterally and EAC's normal General nose exam: nasal discharge clear Face and sinus: normal facial exam Mouth: oral mucosae normal and moist mucous membranes Throat: posterior oropharynx normal Eyes General: appearance normal, both eyes and all related structures Conjunctivae: conjunctivae normal Neck Neck: normal visual inspection, full ROM, no lymphadenopathy, no meningeal signs, trachea midline, supple and nontender Resp Effort & Inspection: normal respiratory effort, able to speak in complete sentences and cough (mild,dry) Auscultation: clear to auscultation bilaterally Cardio Rate: regular rate Rhythm: regular rhythm Skin General skin exam: no rashes or lesions noted Neuro General: patient alert, patient awake, moves all extremities and no focal motor deficits Sensory Exam: no sensory deficits noted Psych Appearance: grossly normal Mental Status: mental status grossly normal Course Vital Signs Vital signs: Vital Signs Temperature 37.2 C 05/08/22 08:54 Pulse 90 05/08/22 08:54 Respiratory Rate 18 05/08/22 08:54 Blood Pressure 119/65 05/08/22 08:54 Pulse Oximetry 99 05/08/22 08:54 Temperature 37.2 C 05/08/22 08:54 Temperature Source Temporal Artery Scan 05/08/22 08:54 Pulse 90 05/08/22 08:54 Respiratory Rate 18 05/08/22 08:54 Blood Pressure 119/65 05/08/22 08:54 Blood Pressure Position Sitting 05/08/22 08:54 Pulse Oximetry 99 05/08/22 08:54 Oxygen Delivery Method Room Air 05/08/22 08:54 Oxygen Flow Rate 0 05/08/22 08:54
[2022-05-08 09:12] VITALS: RESP 18
--- NOTE | 2022-05-08 09:52 | DI.RAD_ITS ---
Exam(s) XR PORTABLE CHEST AP EXAM: XR PORTABLE CHEST AP CLINICAL HISTORY: cough. TECHNIQUE: 2D digital imaging was performed. COMPARISON: No exams were available for comparison FINDINGS: LUNGS: Clear. No pleural abnormality seen. HEART: Normal. MEDIASTINUM: Normal. OTHER FINDINGS: None. IMPRESSION: No acute pulmonary findings. DATA REPOSITORY: RADIATION DOSE DELIVERED: Total DLP
--- NOTE | 2022-05-08 09:59 | DI.VRAD_ITS ---
PROCEDURE INFORMATION: Exam: XR Chest Exam date and time: 05/08/2022 9:29 AM Age: 41 years old Clinical indication: Cough TECHNIQUE: Imaging protocol: Radiologic exam of the chest. Views: 1 view. COMPARISON: No relevant prior studies available. FINDINGS: Lungs: Unremarkable. No consolidation. Pleural spaces: Unremarkable. No pleural effusion. No pneumothorax. Heart/Mediastinum: Unremarkable. No cardiomegaly. Bones/joints: Unremarkable. IMPRESSION: No acute findings. Dictated and Authenticated by: Bridger Chamorro MD. Ordering:HELENA Macario MD
[2022-05-08] MEDS: predniSONE 20 MG TAB 60 MG PO (10:12)
[2022-05-08 10:30] VITALS: BP 108/65; PULSE 88; RESP 18; TEMP 36.8; O2SAT 96
[2022-05-10 11:38] LABS: COVID-19 RT-PCR UVMMC Result Negative (Negative)
== END 2022-05-08 10:23 | disposition home or self-care (01) ==
PROVIDERS: Emergency Provider Physician Assistant; PCP Nurse Practitioner
DX: J02.9 Acute pharyngitis, unspecified (principal); R05.1 Acute cough; Z20.822 Contact with and (suspected) exposure to COVID-19
CPT/HCPCS: 87880; 99283; U0003; 71045; 87081; J7512

== ENCOUNTER → 2022-08-04 03:10 | Outpatient (CLI) | payer BC, SELFPAY ==
--- NOTE | 2022-08-04 08:00 | DI.MAMMO_ITS ---
Exam(s) MAMMO SCREENING EXAM: MAMMO SCREENING CLINICAL HISTORY: screening,Z12.39 TECHNIQUE: Bilateral full field digital CC and MLO mammographic images were obtained with 3D tomosyn thesis and utilizing computer aided detection (CAD). COMPARISON: Available for comparison. FINDINGS: Masses/Architectural Distortion: There are 2 new nodules seen in the upper outer quadrant of the left breast. There is also new nodular density in the inferior right breast. Microcalcifications: No suspicious pleomorphic-type are seen. Skin Thickening/Nipple Retraction: None. IMPRESSION: 1. Bilateral breast nodules which should be further evaluated. 2. Additional views and ultrasound of both breasts should be obtained for further evaluation. BI-RADS Category 0 - Assessment Incomplete: Need additional imaging evaluation Breast Density - Category C - Heterogeneously dense Breast density category C or D implies that the patient has dense breast tissue. Dense breast tissue is very common and is not abnormal but dense breast tissue can make it harder to find cancer on a ma mmogram. Also, dense breast tissue may increase their breast cancer risk. This information about the result of the mammogram report was provided to the patient to raise their awareness. Use this report when you speak with the patient about their risks for breast cancer, which includes their family hist ory. At that time, you may recommend for more screening tests (Ultrasound or MRI) as they might be us eful based on their risk. A negative radiographic report should not delay biopsy if a dominant or clinically suspicious mass is present. Up to ten percent of cancers are not identified on mammography. A negative report may reinforce clinical impression. Adenosis and dense breasts may obscure an underlying neoplasm. False positive reports average 6 to 10%. Patient will receive a letter notifying them of these results.
== END ==
PROVIDERS: PCP Nurse Practitioner; Visit Provider Nurse Practitioner Women's Health
DX: Z12.31 Encounter for screening mammogram for malignant neoplasm of breast (principal); R92.8 Other abnormal and inconclusive findings on diagnostic imaging of breast
CPT/HCPCS: 77063; 77067

== ENCOUNTER → 2022-08-11 02:14 | Outpatient (CLI) | payer BC, SELFPAY ==
--- NOTE | 2022-08-11 08:45 | DI.MAMMO_ITS ---
Exam(s) US BREAST LT COMPLETE US BREAST RT COMPLETE MG MAMMO SCREEN CALL BACK BI EXAM: US BREAST RT LIMITED CLINICAL HISTORY: NEW NODULAR DENSITY INFERIOR RT BREAST TECHNIQUE: Ultrasound performed using standard protocol. COMPARISON: US US BREAST LT LIMITED from 08/11/2022 FINDINGS: Additional mammographic views of both breasts and bilateral breast ultrasound are interpreted in conj unction. Right breast contains areas of asymmetric density with a nodular appearance as noted on recent mammog bebe. Spot compression views confirm nodularity in the 12 o'clock to 10 o'clock position in the breas t as well as in the central portion the breast. Spot compression views do not show suspicious mass b ut do show persistent fairly well-circumscribed nodularity period ultrasound examination of the right breast shows a 12 o'clock position 11 millimeter in diameter group of cysts period additional groups of micro cysts are seen in the 4 o'clock position measuring about 10 millimeters in diameter and in the 11 o'clock position measuring about 10 millimeters in diameter. No solid mass identified in the breast. Left breast showed 12 o'clock position well-circumscribed area of nodularity confirmed on spot compre ssion views, this appear to correspond with a 7 by 9 millimeter in diameter simple cyst seen on ultra sound. Additional small cystic area noted in 9 o'clock position. No solid mass identified. IMPRESSION: Bilateral breast cysts are identified, no solid mass identified. Follow-up bilateral mammogram and u ltrasound recommended in 6 months. BI-RADS Cat 3 - 6 month - Probably Benign Finding: Recommend follow-up imaging in 6 months Breast Density - Category C - Heterogeneously dense DATA REPOSITORY:
== END ==
PROVIDERS: PCP Nurse Practitioner Family; Visit Provider Nurse Practitioner Women's Health
DX: R92.8 Other abnormal and inconclusive findings on diagnostic imaging of breast (principal); N60.01 Solitary cyst of right breast; N60.02 Solitary cyst of left breast
CPT/HCPCS: 76642; 77063; 77067

== ENCOUNTER 2023-02-16 01:37 | Outpatient (CLI) | payer BC, SELFPAY ==
--- NOTE | 2023-02-16 07:04 | DI.US_ITS ---
Exam(s) US BREAST LT COMPLETE US BREAST RT COMPLETE MG MAMMO DIAGNOSTIC BI EXAM: MG MAMMO DIAGNOSTIC BI aAND BILATERAL COMPLETE BREAST ULTRASOUND CLINICAL HISTORY: 6 month f/u,f/u abnl mammo, r92.8. TECHNIQUE: Both CC and MLO bilateral mammographic images were obtained with 3D tomosynthesis technYesware ue and utilizing computer aided detection (CAD). Also performed spot compression views of both breas ts. Bilateral complete breast ultrasound was performed including all 4 quadrants of both breasts as well as both axillary regions. COMPARISON: Prior mammograms were reviewed, the most recent being 08/04/2022. Prior ultrasound of 08/11/2022 was also reviewed. FINDINGS: BILATERAL DIAGNOSTIC MAMMOGRAM: Previously described bilateral nodular densities on the mammogram remain unchanged from 08/04/2022. No new nodules evident. No malignant-appearing microcalcification groups No new architectural distortion or skin thickening-traction. BILATERAL COMPLETE BREAST ULTRASOUND: LEFT BREAST: At 12 o'clock position there are a few microcysts again noted, largest measuring 9 x 6 mm, unchanged. These most probably correspond to the dominant finding on the mammogram. Also at 12 o'clock position is a 3 millimeter microcyst which is decreased in size from 6 millimeter measurement previously. At the 1 o'clock position there is an 8 x 5 millimeter microcyst. At the 8 o'clock position there is a 3 millimeter microcyst. At the 9 o'clock position there is an unchanged finding which is either a lymph node or conglomeratio n of microcysts, measuring 5 x 3 mm, similar to previous. At the 11 o'clock position there is a wider than taller 6 x 3 millimeter nodular density which probab ly a conglomeration microcysts. Scanning of the left axilla is negative for adenopathy. RIGHT BREAST: At 12 o'clock position there is again noted and unchanged wider than taller 9 x 6 mm finding which savage s appearance of a septated microcyst. Also at 12 o'clock position is a small 3 millimeter microcysts which is decreased in size from 6 mm p reviously. At the 4 o'clock position there is again noted a wider than taller 9 x 6 mm nodule with increased thr ough transmission, unchanged in size and having the appearance of a probable conglomeration microcyst s or partially solid partially cystic fibroadenoma. At the 11 o'clock position there is again noted another similar finding to the 4 o'clock position eliana victoria which measures 9 x 6 mm, unchanged, wider than taller and with neutral through transmission. Sp ongiform appearance, either conglomeration microcysts or partially solid partially cystic fibroadenom a. Scanning of the right axilla is negative for significant adenopathy. IMPRESSION: Stable appearance of the nodular densities on the mammogram and ultrasound when compared to 6 months ago (July and August 2022). Appropriate follow-up is to repeat bilateral breast ultrasound examination at time for next yearly ma mmogram which should be in 6 months from now.. The patient was informed of the findings and follow-up recommendations by myself prior to leaving the department today. BI-RADS Category 3 - 6 month - Probably Benign Finding: Recommend follow-up mammography in 6 months Breast Density - Category C - Heterogeneously dense Breast density Category C or D implies that the patient has dense breast tissue. Dense breast tissue can make it harder to find cancer on a mammogram. Dense breast tissue is also associated with an incr eased risk of breast cancer. This information about the result of the mammogram report was provided to the patient to raise their awareness. Use this report when you speak with the patient about their risks for breast cancer, which includes their family history. At that time, you may recommend additional screening tests (Ultrasoun d or MRI) as these tests may add significant information. A negative radiographic report should not delay biopsy if a dominant or clinically suspicious mass is present. Up to ten percent of cancers are not identified on mammography. A negative report may reinforce clinical impression. Adenosis and dense breasts may obscure an underlying neoplasm. False positive reports average 6 to 10%. Patient will receive a letter notifying them of these results.
== END 2023-02-16 01:57 ==
LOC: DI 01:37
PROVIDERS: PCP Nurse Practitioner Family; Visit Provider Nurse Practitioner Women's Health
DX: Z12.31 Encounter for screening mammogram for malignant neoplasm of breast (principal); R92.8 Other abnormal and inconclusive findings on diagnostic imaging of breast
CPT/HCPCS: 76642; 77062; 77066; G0279

== ENCOUNTER → 2023-08-09 03:02 | Outpatient (CLI) | payer BC, SELFPAY ==
--- NOTE | 2023-08-09 09:15 | DI.US_ITS ---
Exam(s) US BREAST RT LIMITED MG MAMMO DIAGNOSTIC BI US BREAST LT LIMITED EXAM: MG MAMMO DIAGNOSTIC BI CLINICAL HISTORY: 6mo f/u, R92.8. TECHNIQUE: Full field digital Mammography views of bothbreasts with Tomosynthesis followed by bilate ral breast ultrasound. COMPARISON: US US BREAST LT COMPLETE from 08/11/2022 US US BREAST RT COMPLETE from 08/11/2022 US US BREAST LT COMPLETE from 02/16/2023 US US BREAST RT COMPLETE from 02/16/2023 US US BREAST RT LIMITED from 08/09/2023 US US BREAST LT LIMITED from 08/09/2023 FINDINGS: RIGHT BREAST: Mammography/Tomosynthesis: Masses/Architectural Distortion: Stable areas of nodularity in the superior and inferior portions of the breast. Microcalcifictions: No suspicious pleomorphic-type are seen. Skin Thickening/Nipple Retraction: None. Right breast US: Echotexture: Normal appearance of the glandular tissue. Shadowing: No suspicious foci. Cyst: Cyst 11 o'clock 7 millimeter maximal dimension 4 cm from the nipple. Solid lesions: 9 millimeter lymph node versus small fibroadenoma maximal dimension 4 o'clock 1 cm fro m the nipple. Lymph node 12 o'clock 3 cm from the nipple 7 millimeter maximal dimension. Ductal dilation: None. LEFT BREAST: Mammography/Tomosynthesis: Masses/Architectural Distortion: Mild interval increase in size area of nodularity seen centrally, 1 2 o'clock position. The other 2 nodules have decreased slightly in size. Microcalcifictions: No suspicious pleomorphic-type are seen. Skin Thickening/Nipple Retraction: None. Left breast ultrasound: Echotexture: Normal appearance of the glandular tissue. Shadowing: No suspicious foci. Cyst: 12 o'clock cyst 8 x 11 by 15 millimeters has increased in size from 10 x 10 x 7 millimeters. N o change 7 millimeter cyst 1 o'clock. Lymph node versus a cluster of microcysts also seen at 1 o'daryl ck. 7 millimeter lymph node versus clustered microcysts noted in 3 o'clock position Solid lesions: None seen. Ductal dilation: None. IMPRESSION: 1. Right breast: No evidence of malignancy is noted. 2. Left breast: No evidence of malignancy is noted. 3. Unless there is more urgent need, follow-up screening mammography is recommended, in 1 year. 4. The findings were discussed with the patient on the date of the examination. BI-RADS Category 2 - Benign Findings Breast Density - Category C - Heterogeneously dense A mammogram that demonstrates density of C or D indicates the patient's breast tissue is dense. Dense breast tissue is very common and is not abnormal, but dense breast tissue can make it harder to find cancer on a mammogram. Also, dense breast tissue may increase their breast cancer risk. This informa tion about the result of the mammogram report was provided to the patient to raise their awareness. U se this report when you speak with the patient about their risks for breast cancer, which includes th eir family history. At that time, you may recommend for more screening tests (Ultrasound or MRI) as t hey might be useful based on their risk. A negative radiographic report should not delay biopsy if a dominant or clinically suspicious mass is present. Up to ten percent of cancers are not identified on mammography. A negative report may reinforce clinical impression. Adenosis and dense breasts may obscure an underlying neoplasm. False positive reports average 6 to 10%. Patient will receive a letter notifying them of these results.
== END ==
PROVIDERS: PCP Nurse Practitioner Family; Visit Provider Nurse Practitioner Family
DX: R92.8 Other abnormal and inconclusive findings on diagnostic imaging of breast (principal); R92.323 Mammographic fibroglandular density, bilateral breasts; N60.11 Diffuse cystic mastopathy of right breast; N60.12 Diffuse cystic mastopathy of left breast
CPT/HCPCS: 76642; 77062; 77066; G0279

== ENCOUNTER 2023-08-25 03:18 | Outpatient (CLI) | payer BC, SELFPAY ==
[2023-08-25 13:01] LABS: HCT 41.8 % (36.0-46.0); HGB 13.8 g/dL (11.2-15.7); MCH 29.8 pg (27.0-33.0); MCV 90 fL (80-95); MPV 9.4 fL (8.0-11.0); Platelet Count 229 10^3/uL (130-400); RBC 4.63 10^6/uL (3.93-5.22); RDW 12.5 % (11.7-14.6); RDW-SD 41.2 fL
[2023-08-25 13:44] LABS: ALT 26 U/L (14-59); AST 12 U/L (15-37); Albumin 3.7 g/dL (3.4-5.0); Alkaline Phosphatase 53 U/L (46-116); Anion Gap 10.4 mmol/L (3-11); BUN 13 mg/dL (7-18); Bilirubin, Total 0.7 mg/dL (0.2-1.0); CO2 23.6 mmol/L (21.0-32.0); CREATININE 0.9 mg/dL (0.55-1.02); Calcium 9.1 mg/dL (8.5-10.1); Calculated LDL 107 mg/dL (<100); Chloride 106 mmol/L (98-107); Cholesterol 166 mg/dL (<200); Estimated GFR 80.84 (mL/min/1.73m2); Glucose 97 mg/dL (74-106); HDL Cholesterol 50 mg/dL (40-60); Potassium 3.8 mmol/L (3.5-5.1); Sodium 140 mmol/L (136-145); TSH (W/Ref FT4) 0.76 uIU/mL (0.36-3.74); Total Protein 7.2 g/dL (6.4-8.2); Triglyceride 49 mg/dL (<150)
[2023-08-26 09:33] LABS: HIV-1/2 Ag & Ab Screen Negative (Negative)
[2023-08-28 10:47] LABS: Hepatitis C Ab w Rflx HCV PCR Negative (Negative)
== END 2023-08-25 03:19 | disposition home or self-care (01) ==
PROVIDERS: PCP Nurse Practitioner Family; Visit Provider Nurse Practitioner Family
DX: R53.83 Other fatigue (principal); Z13.220 Encounter for screening for lipoid disorders; Z11.59 Encounter for screening for other viral diseases; Z11.4 Encounter for screening for human immunodeficiency virus [HIV]
CPT/HCPCS: 36415; 80053; 80061; 85027; 86803; 87389; 84443

== ENCOUNTER 2023-09-05 03:47 | Outpatient (CLI) | payer BC, SELFPAY ==
[2023-09-05] MEDS: Methacholine 100 MG VIAL IH (14:24)
[2023-09-05] MEDS: Albuterol HFA 18 GM 200 PUFF INH IH (14:24)
[2023-09-05] MEDS: Inhaler, Assist Device 1 EACH MC (14:25)
--- NOTE | 2023-09-07 13:39 | W.PFT ---
Date of service: 09/05/23 Time of Service: 13:02 Pulmonary Function Test Result Indications: Asthma Interpretation Spirometry: There is no airflow limitation at baseline. There was a 20% decrease in FEV1 with administration of 0.5mg/mL methacholine. Impression Normal baseline spirometry with a positive methacholine challenge test. Clinical Correlation therefore is recommended.
== END 2023-09-05 03:48 | disposition home or self-care (01) ==
LOC: RT 03:47
PROVIDERS: PCP Nurse Practitioner Family; Visit Provider Nurse Practitioner Family
DX: J45.909 Unspecified asthma, uncomplicated (principal)
CPT/HCPCS: 94060; 94070; J7674

== ENCOUNTER 2024-03-18 13:07 | Outpatient (REF) | payer BC, SELFPAY ==
--- NOTE | 2024-03-18 13:00 | PAPFT_PTH ---
PATIENT: Jo Siegel LOC: [facility] U#:[id number] AGE/SX: 43/F ROOM: RE03/18/[address]: Deanne Vogel NP : 1980 BED: DIS: 03/18/2024 SPEC #: [id number] RECD: 03/18/24 18:08 STATUS: [facility]TER #: [id number] OLIVIA: 03/18/24 13:[address]: Deanne Vogel NP DEPT: [facility] Cytology RECD BY: Fiordaliza Ceron ENTERED: 03/18/24 18:09 SP TYPE: PAPFT OTHR DR: Sharon Puga NP Tissues: 1 - CX/ENDOCX FOR PAP SMEARS Procedures: PAP THIN PREP/UVM Screening HPV DNA PROBE Comments: [id number]
== END 2024-03-18 13:08 | disposition home or self-care (01) ==
LOC: LBN 13:07
PROVIDERS: PCP Nurse Practitioner Family; Visit Provider Nurse Practitioner Women's Health
DX: Z11.51 Encounter for screening for human papillomavirus (HPV) (principal); Z01.419 Encounter for gynecological examination (general) (routine) without abnormal findings
CPT/HCPCS: 88142; 87624

== ENCOUNTER 2024-08-12 01:34 | Outpatient (CLI) | payer BC, SELFPAY ==
--- NOTE | 2024-08-12 08:30 | DI.MAMMO_ITS ---
Exam(s) MAMMO SCREENING EXAM: MAMMO SCREENING CLINICAL HISTORY: screening TECHNIQUE: Bilateral full field digital CC and MLO mammographic images were obtained with 3D tomosyn thesis and utilizing computer aided detection (CAD). COMPARISON: Available for comparison. FINDINGS: Masses/Architectural Distortion: There has been significant decrease of the left breast nodules previ ously shown to be cysts. No suspicious masses are seen in either breast. No areas of architectural d istortion are present. Microcalcifications: No suspicious pleomorphic-type are seen. Skin Thickening/Nipple Retraction: None. IMPRESSION: 1. No significant interval change with no specific features of malignancy noted. 2. Unless there is more urgent need, screening mammography is recommended, as per [employer] guidelines. BI-RADS Category 2 - Benign Findings Breast Density - Category C - Heterogeneously dense Breast density category C or D implies that the patient has dense breast tissue. Dense breast tissue is very common and is not abnormal but dense breast tissue can make it harder to find cancer on a ma mmogram. Also, dense breast tissue may increase their breast cancer risk. This information about the result of the mammogram report was provided to the patient to raise their awareness. Use this report when you speak with the patient about their risks for breast cancer, which includes their family hist ory. At that time, you may recommend for more screening tests (Ultrasound or MRI) as they might be us eful based on their risk. A negative radiographic report should not delay biopsy if a dominant or clinically suspicious mass is present. Up to ten percent of cancers are not identified on mammography. A negative report may reinforce clinical impression. Adenosis and dense breasts may obscure an underlying neoplasm. False positive reports average 6 to 10%. Patient will receive a letter notifying them of these results.
== END 2024-08-12 01:54 ==
LOC: DI 01:34
PROVIDERS: PCP Nurse Practitioner Family; Visit Provider Nurse Practitioner Women's Health
DX: Z12.31 Encounter for screening mammogram for malignant neoplasm of breast (principal)
CPT/HCPCS: 77063; 77067

== ENCOUNTER 2025-03-24 00:50 | Outpatient (CLI) | payer BC, SELFPAY ==
[2025-03-24 16:15] LABS: HCT 36.8 % (36.0-46.0); HGB 12.2 g/dL (11.2-15.7); MCH 30.3 pg (27.0-33.0); MCHC 33.2 % (32.0-36.0); MCV 91 fL (80-95); MPV 10.1 fL (8.0-11.0); Platelet Count 218 10^3/uL (130-400); RBC 4.03 10^6/uL (3.93-5.22); RDW 12.2 % (11.7-14.6); RDW-SD 41.1 fL; WBC 5.16 10^3/uL (4.4-10.8)
[2025-03-24 16:32] LABS: Hemoglobin A1C 4.8 % (<5.7)
[2025-03-24 17:22] LABS: ALT 25 U/L (14-59); AST 14 U/L (15-37); Albumin 3.6 g/dL (3.4-5.0); Alkaline Phosphatase 41 U/L (46-116); Anion Gap 9.2 mmol/L (3-11); BUN 13 mg/dL (7-18); Bilirubin, Total 0.9 mg/dL (0.2-1.0); CO2 25.8 mmol/L (21.0-32.0); CREATININE 0.9 mg/dL (0.55-1.02); Calcium 8.6 mg/dL (8.5-10.1); Calculated LDL 90 mg/dL (<100); Chloride 103 mmol/L (98-107); Cholesterol 153 mg/dL (<200); Estimated GFR 80.34 (mL/min/1.73m2); Glucose 78 mg/dL (74-106); HDL Cholesterol 58 mg/dL (>or=50); Potassium 3.7 mmol/L (3.5-5.1); Sodium 138 mmol/L (136-145); Total Protein 6.5 g/dL (6.4-8.2); Triglyceride 26 mg/dL (<150)
== END 2025-03-24 00:51 | disposition home or self-care (01) ==
PROVIDERS: PCP Nurse Practitioner Family; Visit Provider Nurse Practitioner Family
DX: Z00.00 Encounter for general adult medical examination without abnormal findings (principal); F41.9 Anxiety disorder, unspecified; F32.9 Major depressive disorder, single episode, unspecified; E66.9 Obesity, unspecified; K21.00 Gastro-esophageal reflux disease with esophagitis, without bleeding; J45.909 Unspecified asthma, uncomplicated
CPT/HCPCS: 36415; 80053; 80061; 85027; 83036

== ENCOUNTER 2025-03-25 14:44 | Outpatient (CLI) | payer BC, SELFPAY ==
--- NOTE | 2025-03-25 13:30 | DI.RAD_ITS ---
Exam(s) XR LUMBAR SPINE COMPLETE EXAM: XR LUMBAR SPINE COMPLETE CLINICAL HISTORY: eval pathology, lumbar pain, M54.50 low back pain. TECHNIQUE: 2D digital imaging was performed of the lumbar spine. Five images were obtained. AP, lateral, right oblique, left oblique and L5-S1 spot views were obtained. COMPARISON: There are no priors for comparison. FINDINGS: BONES: No fracture or destructive lesion. There are small osteophytes at the endplates at L2-3 and L5-S1. No facet hypertrophy identified. DISKS: Intervertebral disc spaces are maintained. ALIGNMENT: Lumbar spinal alignment is within normal limits. No spondylolysis or spondylolisthesis. SOFT TISSUE: Normal. IMPRESSION: Mild degenerative changes in the lumbar spine. DATA REPOSITORY: RADIATION DOSE DELIVERED:
== END 2025-03-25 15:04 ==
PROVIDERS: PCP Nurse Practitioner Family; Visit Provider Nurse Practitioner Family
DX: M51.360 Other intervertebral disc degeneration, lumbar region with discogenic back pain only (principal)
CPT/HCPCS: 72110

== ENCOUNTER → 2025-08-20 01:15 | Outpatient (CLI) | payer BC, SELFPAY ==
--- NOTE | 2025-08-20 09:29 | DI.MAMMO_ITS ---
Exam(s) MAMMO SCREENING EXAM: MAMMO SCREENING CLINICAL HISTORY: screening TECHNIQUE: Mammograms were interpreted according to the usual protocol including computer analysis with CAD system, tomosynthesis and C-view imaging. COMPARISON: 2019 through 2023 FINDINGS: The breasts are composed of heterogeneously dense fibroglandular densities, Breast Density category C. No suspicious masses or suspicious microcalcifications are seen. No skin thickening or abnormal axillary lymph nodes are seen. There has been no significant change from prior exams. IMPRESSION: BI-RADS Category 1, Negative mammogram. Yearly screening mammography is recommended. Breast Density: Category C - The breasts are heterogeneously dense, which may obscure small masses. Breast density Category C or D implies that the patient has dense breast tissue. Dense breast tissue can make it harder to find cancer on a mammogram. Dense breast tissue is also associated with an increased risk of breast cancer. This information about the result of the mammogram report was provided to the patient to raise their awareness. Use this report when you speak with the patient about their risks for breast cancer, which includes their family history. At that time, you may recommend additional screening tests (Ultrasound or MRI) as these tests may add significant information. A negative radiographic report should not delay biopsy if a dominant or clinically suspicious mass is present. Up to ten percent of cancers are not identified on mammography. A negative report may reinforce clinical impression. Adenosis and dense breasts may obscure an underlying neoplasm. False positive reports average 6 to 10%.
== END ==
LOC: DI 01:15
PROVIDERS: PCP Nurse Practitioner Family; Visit Provider Nurse Practitioner Women's Health
DX: Z12.31 Encounter for screening mammogram for malignant neoplasm of breast (principal); R92.323 Mammographic fibroglandular density, bilateral breasts
CPT/HCPCS: 77063; 77067